=== PATIENT | male | born 1980 | race African-American/Black ===

== ENCOUNTER 2023-06-02 17:14 | Emergency (ER) | payer MEDICAID ==
[~2023-06-02] VITALS: Ht 177.8 cm; Wt 86.4 kg
[2023-06-02 17:33] VITALS: BP 167/92; PULSE 79; RESP 16; TEMP 98; O2SAT 99
--- NOTE | 2023-06-02 17:58 | NUR ---
PT PRESENTS TO THE ER FOR NOSE BLEEDS. PT NOSE IS NOT CURRENTLY BLEEDING. PT REPORTS 2 NOSE BLEEDS EARLIER TODAY.
== END 2023-06-02 18:31 | disposition left against medical advice (07) ==
LOC: ER 17:14
DX: R04.0 Epistaxis (principal); Z53.21 Procedure and treatment not carried out due to patient leaving prior to being seen by health care provider
CPT/HCPCS: 99281